=== PATIENT | female | born 1940 | race Caucasian/White ===

== ENCOUNTER 2017-04-29 13:59 | Emergency (ER) | payer MEDICARE ==
[~2017-04-29] VITALS: Ht 144.7 cm; Wt 63.5 kg
[~2017-04-29 13:59] MED LIST: LEVOTHYROXIN0.075 M1 PO; LORAZEPAM0.5 MG PO; PERCOCET 325 MG1 TA2 PO; PRAVASTATIN SOD40 MG PO
[2017-04-29 14:07] VITALS: BP 172/83
[2017-04-29 14:30] LABS: BILIRUBIN NEGATIVE (NEGATIVE); BLOOD TRACE-INTACT (NEGATIVE); CLARITY CLOUDY (CLEAR); COLOR YELLOW (YELLOW); GLUCOSE NEGATIVE (NEGATIVE); KETONE TRACE (NEGATIVE); LEUKO ESTERASE 2+ (NEGATIVE); NITRITE NEGATIVE (NEGATIVE); PH 5.5 (5.0-9.0); SPECIFIC GRAVITY >= 1.030 (1.005-1.030); UROBILINOGEN 0.2 E.U./dl (0.2-1.0)
[2017-04-29 14:40] LABS: BACTERIA 1+; EPITHELIAL CELLS 51-100; WBC 41-50 wbc/hpf (0-5)
[2017-04-29 14:49] LABS: BASO % 0.2 % (0.0-1.0); EOS # 0.2 10*3/uL (0.0-0.4); EOS % 2.4 % (1.0-4.0); HEMATOCRIT 37.8 % (37.0-47.0); HEMOGLOBIN 12.1 g/dl (12.0-16.0); LYMPH # 1.6 10*3/uL (1.3-4.4); LYMPH % 17.4 % (27.0-41.0); MEAN CELL VOLUME 94.7 fl (81.0-99.0); MEAN CORPUSCULAR HGB 30.3 pg (27.0-31.0); MEAN PLATELET VOLUME 9.1 fl (9.6-12.3); MONO # 0.6 10*3/uL (0.1-1.0); MONO % 6.8 % (3.0-9.0); NEUT # 6.6 10*3/uL (2.3-7.9); NEUT % 72.7 % (47.0-73.0); PLATELET COUNT AUTOMATED 197 10*3/uL (130-400); RED BLOOD COUNT 3.99 10*6/uL (4.10-5.10); RED CELL DISTRI WIDTH 13.4 % (0-14.5); WHITE BLOOD COUNT 9.1 10*3/uL (4.8-10.8)
[2017-04-29 15:04] LABS: CREATININE 1.07 mg/dL (0.55-1.02); THYROXINE (T4) TOTAL 13.9 ug/dl (4.8-13.9); TOTAL PROTEIN 7.8 gm/dL (6.4-8.2)
[2017-04-29 15:14] LABS: THYROID STIM HORMONE (HS) 2.67 uIU/ml (0.358-4.75)
[2017-04-29] MEDS ORDERED: MACROBID100 M1 PO (16:28)
== END 2017-04-29 22:03 | disposition home or self-care (01) ==
LOC: ED 13:59
PROVIDERS: Nurse Practitioner Family
DX: N30.00 Acute cystitis without hematuria (principal); Z79.899 Other long term (current) drug therapy

== ENCOUNTER → 2017-06-16 | Outpatient (CLI) | payer MEDICARE ==
[~2017-06-16] MED LIST changes: +MACROBID100 M1 PO
[2017-06-16 10:19] LABS: BASO % 0.4 % (0.0-1.0); EOS # 0.3 10*3/uL (0.0-0.4); EOS % 5.1 % (1.0-4.0); HEMATOCRIT 33.2 % (37.0-47.0); HEMOGLOBIN 10.7 g/dl (12.0-16.0); LYMPH % 18.3 % (27.0-41.0); MEAN CORPUSCULAR HGB 29.6 pg (27.0-31.0); MEAN CORPUSCULAR HGB CONC 32.2 g/dl (33.0-37.0); MEAN PLATELET VOLUME 9.1 fl (9.6-12.3); MONO # 0.4 10*3/uL (0.1-1.0); MONO % 6.3 % (3.0-9.0); NEUT % 69.4 % (47.0-73.0); PLATELET COUNT AUTOMATED 184 10*3/uL (130-400); RED BLOOD COUNT 3.61 10*6/uL (4.10-5.10); RED CELL DISTRI WIDTH 13.9 % (0-14.5); WHITE BLOOD COUNT 5.7 10*3/uL (4.8-10.8)
[2017-06-16 10:36] LABS: ALKALINE PHOSPHATASE 92 U/L (45-117); BUN 15 mg/dl (7-24); CHLORIDE 106 mmol/L (98-107); CREATININE 0.85 mg/dL (0.55-1.02); POTASSIUM 2.8 mmol/L (3.5-5.1); SGOT/AST 17 IU/L (3-35); SGPT/ALT 18 U/L (12-78); SODIUM 143 mmol/L (136-145); TOTAL PROTEIN 7.6 gm/dL (6.4-8.2)
== END | disposition home or self-care (01) ==
LOC: LAB 09:55
PROVIDERS: Internal Medicine
DX: R05 Cough (principal); R60.0 Localized edema; R82.99 Other abnormal findings in urine; Z87.891 Personal history of nicotine dependence

== ENCOUNTER → 2017-06-22 | Outpatient (CLI) | payer MEDICARE | LOC: CARD 09:55 | DX: M43.16 Spondylolisthesis, lumbar region (principal); M47.897 Other spondylosis, lumbosacral region; M48.54XA Collapsed vertebra, not elsewhere classified, thoracic region, initial encounter for fracture; M48.061 Spinal stenosis, lumbar region without neurogenic claudication; I35.1 Nonrheumatic aortic (valve) insufficiency; I72.8 Aneurysm of other specified arteries; R10.9 Unspecified abdominal pain; Z98.890 Other specified postprocedural states ==

== ENCOUNTER → 2017-06-27 | Outpatient (CLI) | payer MEDICARE | END | disposition home or self-care (01) | LOC: MRI 09:55 | DX: M48.54XA Collapsed vertebra, not elsewhere classified, thoracic region, initial encounter for fracture (principal) ==

== ENCOUNTER → 2017-06-28 | Outpatient (CLI) | payer MEDICARE | END | disposition home or self-care (01) | LOC: RAD 01:24 | DX: N95.9 Unspecified menopausal and perimenopausal disorder (principal) ==

== ENCOUNTER 2017-07-18 12:38 | Inpatient (IN) | payer MEDICARE ==
[~2017-07-18] VITALS: Ht 144.8 cm; Wt 70.3 kg
--- NOTE | ~2017-07-18 | PROC NOTE ---
[place], [place] PROCEDURE NOTE NAME: MARTINE PEREZ UNIT #: [id number] ROOM: 419 DOCTOR: FABIAN BUITRAGO BIRTHDATE: [birth year] DOS: 07/19/2017 MODIFIED BARIUM SWALLOW LOCATION: [facility], room 419, bed 1. DOCTOR: David Rothman DO RADIOLOGIST: Dr. Nuñez. BACKGROUND INFORMATION: The patient, a 77-year-old female was seen for modified barium swallow. This test was ordered to rule out aspiration due to reports of difficulty swallowing and decreased appetite. The patient was admitted with UTI and change in mental status. Further medical history includes CHF, chronic back pain, recent back surgery, metabolic encephalopathy, GERD. This patient is currently n.p.o. For today's assessment, she was alert and able to follow all commands. Oral peripheral examination revealed natural teeth which were in good condition. Lingual, labial, and buccal skills were all within normal limits in terms of strength, range of motion, and coordination. Laryngeal skills were also within normal limits as the patient was able to volitionally cough and swallow. METHODS AND MATERIALS USED FOR THE EXAM: The patient was positioned in the lateral plane and the exam was viewed under fluoroscopy. The patient was presented with a variety of consistencies to assess swallowing skills including applesauce mixed with barium presented in half teaspoon amounts, barium-coated cookie presented in bite sized piece and thin liquid barium taken both by cup and straw. The patient was given the cup and instructed to swallow in her normal sip size amount. ORAL PHASE: Unremarkable. PHARYNGEAL PHASE: Unremarkable. ESOPHAGEAL PHASE: This phase of the swallow was not formally assessed during this exam. IMPRESSIONS AND RECOMMENDATIONS: Based upon assessment results, this 77-year-old patient exhibited swallowing skills that were within normal limits. Recommend she receives a regular diet and thin liquids. No followup therapy is warranted at this time. Results and recommendations were shared with the patient, her daughter and her nurse and they verbalized understanding. Thank you very much for this referral. Should you have any questions regarding this patient, please contact the speech pathologist at [phone]. [place], [place] PROCEDURE NOTE NAME: MARTINE PEREZ UNIT #: [id number] ROOM: 419 DOCTOR: FABIAN BUITRAGO BIRTHDATE: [birth year] FABIAN BUITRAGO CM:PROCNOTE:PROCEDURE NOTE 112 FABIAN BUITRAGO
[~2017-07-18 12:38] MED LIST changes: -LEVOTHYROXIN0.075 M1 PO; +Synthroid,Lev100 MCG PO
[2017-07-18 12:46] VITALS: BP 146/72
[2017-07-18 13:29] LABS: BASO % 0.4 % (0.0-1.0); EOS # 0.4 10*3/uL (0.0-0.4); EOS % 3.6 % (1.0-4.0); HEMATOCRIT 28.4 % (37.0-47.0); HEMOGLOBIN 9.7 g/dl (12.0-16.0); LYMPH % 10.8 % (27.0-41.0); MEAN CELL VOLUME 87.7 fl (81.0-99.0); MEAN CORPUSCULAR HGB 29.9 pg (27.0-31.0); MEAN CORPUSCULAR HGB CONC 34.2 g/dl (33.0-37.0); MEAN PLATELET VOLUME 10.1 fl (9.6-12.3); MONO # 0.5 10*3/uL (0.1-1.0); MONO % 5.4 % (3.0-9.0); NEUT # 7.7 10*3/uL (2.3-7.9); NEUT % 79.4 % (47.0-73.0); PLATELET COUNT AUTOMATED 155 10*3/uL (130-400); RED BLOOD COUNT 3.24 10*6/uL (4.10-5.10); RED CELL DISTRI WIDTH 13.7 % (0-14.5); WHITE BLOOD COUNT 9.7 10*3/uL (4.8-10.8)
[2017-07-18 13:45] LABS: ALBUMIN 3.4 gm/dl (3.1-4.5); ALKALINE PHOSPHATASE 139 U/L (45-117); BUN 18 mg/dl (7-24); CHLORIDE 101 mmol/L (98-107); CREATININE 1.13 mg/dL (0.55-1.02); LIPASE 77 U/L (73-393); POTASSIUM 3.5 mmol/L (3.5-5.1); SGOT/AST 17 IU/L (3-35); SGPT/ALT 14 U/L (12-78); SODIUM 135 mmol/L (136-145); TOTAL PROTEIN 7.6 gm/dL (6.4-8.2)
[2017-07-18 13:46] LABS: ACT PARTIAL THROMBO TIME 26.2 SECONDS (20.8-31.5)
[2017-07-18 13:47] LABS: TROPONIN I < 0.015 ng/ml (<0.045)
[2017-07-18 15:03] LABS: BILIRUBIN NEGATIVE (NEGATIVE); BLOOD NEGATIVE (NEGATIVE); CLARITY CLOUDY (CLEAR); COLOR YELLOW (YELLOW); GLUCOSE NEGATIVE (NEGATIVE); KETONE NEGATIVE (NEGATIVE); LEUKO ESTERASE 1+ (NEGATIVE); NITRITE NEGATIVE (NEGATIVE); UROBILINOGEN 0.2 E.U./dl (0.2-1.0)
[2017-07-18 15:09] LABS: RBC 0-2 rbc/hpf (0-2)
[2017-07-18 15:10] LABS: BACTERIA 4+; EPITHELIAL CELLS TNTC; URIC ACID CRYSTALS TRACE
--- NOTE | 2017-07-18 16:47 | NUR ---
MEDICATED WITH ULTRAM ORDERED FOR C/O BACK PAIN. SHE HAS BEEN TAKING THEM AT HOME SINCE RECENT BACK SURGERY. SAHIL BOB RN
[2017-07-18 17:29] VITALS: BP 147/75
--- NOTE | 2017-07-18 17:30 | NUR ---
A 77, admitted to , under the services of ROSS Turner DO with a diagnosis of UTI. Chief complaint is CONFUSED PER FAMILY. Patient arrived via ambulatory from ER. Monitor applied. Initial assessment completed. Vital signs taken and recorded. ROSS TURNER DO notified of admission to the unit. Orders received. See assessment for past medical history, medications and allergies. Patient and/or family oriented to unit. [facility]. Clothing/patient valuable form completed. JOHN TODD
[2017-07-18] MEDS ORDERED: ZANTAC 300300 MG PO (17:41)
[2017-07-18] MEDS ORDERED: ZOLOFT25 MG PO (17:41)
[2017-07-18] MEDS ORDERED: OMEPRAZOLE40 MG PO (17:43)
[2017-07-18] MEDS ORDERED: FUROSEMIDE40 MG PO (17:43)
[2017-07-18] MEDS ORDERED: CYCLOBENZAPRINE5 M3 PO (17:44)
[2017-07-18] MEDS ORDERED: ULTRAM50 MG PO (17:44)
[2017-07-18] MEDS ORDERED: K-LOR 20MEQ20 ME1 PO (17:45)
[2017-07-18] MEDS ORDERED: MELATONIN2.5 M1 PO (17:46)
[2017-07-18] MEDS ORDERED: CALCIUM + D3 E1 EACH PO (17:46)
[2017-07-18 20:00] VITALS: BP 128/68
--- NOTE | 2017-07-18 20:56 | NUR ---
DR HORVATH NOTIFIED THAT PT HOME MEDICATIONS NOT ORDER ON ADMISSION. STATES REVIEWING THEM AT THIS TIME.
--- NOTE | 2017-07-18 20:56 | NUR ---
PT FAMILY NOW LEAVING PT REMAINS A&A, AND PLEASANTLY CONFUSED. BED ALARM SET. PT WAS ASSISTED WITH MAX ASSIST TO BR PRIOR TO THE FAMILY LEAVING. TOLERATED WELL. PT REMINDED TO USE CALL LIGHTS AND ALL WELL IN REACH. PT COOPERATIVE AT PRESENT WITH ALL CARE
--- NOTE | 2017-07-18 22:45 | NUR ---
PT HOME MEDICATIONS REORDERED. MEDICATED ORDERED WITH ULTRAM FOR BACK PAIN. UPON FURTHER ASSESSMENT PT RESTING COMFORTABLY IN BED. BED ALARM IN TACT. PT SLEEPING QUIETLY. MEDICATION DEEMED EFFECTIVE
[2017-07-19] VITALS: BP 136/67
[2017-07-19 07:22] LABS: BASO % 0.2 % (0.0-1.0); EOS # 0.3 10*3/uL (0.0-0.4); HEMOGLOBIN 8.8 g/dl (12.0-16.0); LYMPH % 18.3 % (27.0-41.0); MEAN CELL VOLUME 87.5 fl (81.0-99.0); MEAN CORPUSCULAR HGB 29.6 pg (27.0-31.0); MEAN CORPUSCULAR HGB CONC 33.8 g/dl (33.0-37.0); MEAN PLATELET VOLUME 9.5 fl (9.6-12.3); MONO # 0.4 10*3/uL (0.1-1.0); MONO % 6.9 % (3.0-9.0); NEUT # 3.9 10*3/uL (2.3-7.9); NEUT % 68.7 % (47.0-73.0); PLATELET COUNT AUTOMATED 139 10*3/uL (130-400); RED BLOOD COUNT 2.97 10*6/uL (4.10-5.10); RED CELL DISTRI WIDTH 13.8 % (0-14.5); WHITE BLOOD COUNT 5.6 10*3/uL (4.8-10.8)
[2017-07-19 08:00] VITALS: BP 111/82
[2017-07-19 08:10] LABS: ALBUMIN 2.8 gm/dl (3.1-4.5); BUN 15 mg/dl (7-24); CHLORIDE 103 mmol/L (98-107); POTASSIUM 3.3 mmol/L (3.5-5.1); SODIUM 137 mmol/L (136-145)
[2017-07-19 08:17] LABS: ALKALINE PHOSPHATASE 112 U/L (45-117); CHOLESTEROL 159 mg/dL (<200); CREATININE 0.92 mg/dL (0.55-1.02); FREE T4 0.99 ng/dl (0.76-1.46); HDL CHOLESTEROL 29 mg/dl (40-60); LDL CHOLESTEROL 94 mg/dL (9-159); PHOSPHOROUS 2.5 mg/dL (2.5-4.9); SGOT/AST 14 IU/L (3-35); SGPT/ALT 12 U/L (12-78); TOTAL PROTEIN 6.5 gm/dL (6.4-8.2); TRIGLYCERIDES 182 mg/dl (<150); VLDL CHOLESTEROL 36 mg/dL (6-40)
[2017-07-19 09:57] LABS: VITAMIN D, 25-HYDROXY 13.2 ng/mL (30-100)
--- NOTE | 2017-07-19 10:44 | NUR ---
Cafeteria Assistant in to talk to patient. Patient states lives at home with alone. There are few steps in the home. Physician: susana mcdermott Pharmacy: Home health services: none Patient's level of ADLs: MINIMAL ASSIST Patient has working utilities: all working DME: walker Follow-up physician's appointment after d/c: will be made by hospitalist nurse director upon discharge Does patient want to access PORTAL?: no Discharge plan discussed with patient, daughter present, daughter stated patient lives at home alone, but daughter lives next door, granddaughter has been staying with patient since her back surgery last tuesday, patient has a walker to use, patient somewhat confused, discussed a discharge plan including a short term nursing home prior to going back home, daughter refused, stated her mom would be going back home and someone would be with her 24 hours a day, also discussed with them VNA and they were receptive to this, given choice of companies, they chose [facility], site planner will send referral to [facility] for when patient is medically stable for discharge. MELISSA WERNER
--- NOTE | 2017-07-19 10:57 | NUR ---
SPEECH PATHOLOGY MBS completed as per orders. Patient was challenged with puree, solid food and thin liquids which were taken by cup and straw. Oral and pharyngeal swallowing skills were WNL. Recommend regular diet and thin liquids. No follow up therapy is warranted at this time. Results and prerna. were shared with patient, her daughter and nurse and they verbalized understanding. Dictated report to follow. Thank you for this referral. FABIAN BUITRAGO MSCCC-FLAKER TENDER
[2017-07-19 12:00] VITALS: BP 99/64
[2017-07-19 16:00] VITALS: BP 131/69
--- NOTE | 2017-07-19 16:15 | NUR ---
PRN PAIN MED GIVEN FOR 8/10 BACK PAIN.
--- NOTE | 2017-07-19 16:21 | NUR ---
PRN PAIN MED GIVEN FOR PT REPORT 8/10 BACK PAIN.
--- NOTE | 2017-07-19 17:15 | NUR ---
PRN PAIN MED EFFECTIVE, PT REPORTS HER PAIN IS NOW 4/10 TO HER BACK.
[2017-07-19 20:00] VITALS: BP 111/64
--- NOTE | 2017-07-19 21:08 | NUR ---
PT. AWAKE, ALERT AND ORIENTED X 2 AT THIS TIME, DISORIENTED TO TIME. PT. HAS PERIODS OF CONFUSION. PT. DENIES CP, SOB AND PAIN AT THIS TIME. CALL LIGHT WITHIN REACH, BED IN LOWEST POSITION, WHEELS LOCKED. SEE SHIFT ASSESSMENT.
[2017-07-20] VITALS: BP 117/62
[2017-07-20 04:01] VITALS: BP 114/60
[2017-07-20 06:48] LABS: BASO % 0.4 % (0.0-1.0); EOS # 0.3 10*3/uL (0.0-0.4); EOS % 5.3 % (1.0-4.0); HEMATOCRIT 24.9 % (37.0-47.0); HEMOGLOBIN 8.3 g/dl (12.0-16.0); LYMPH % 19.2 % (27.0-41.0); MEAN CELL VOLUME 88.6 fl (81.0-99.0); MEAN CORPUSCULAR HGB 29.5 pg (27.0-31.0); MEAN CORPUSCULAR HGB CONC 33.3 g/dl (33.0-37.0); MEAN PLATELET VOLUME 9.7 fl (9.6-12.3); MONO # 0.4 10*3/uL (0.1-1.0); MONO % 6.8 % (3.0-9.0); NEUT # 3.5 10*3/uL (2.3-7.9); NEUT % 67.3 % (47.0-73.0); PLATELET COUNT AUTOMATED 142 10*3/uL (130-400); RED BLOOD COUNT 2.81 10*6/uL (4.10-5.10); RED CELL DISTRI WIDTH 13.5 % (0-14.5); WHITE BLOOD COUNT 5.3 10*3/uL (4.8-10.8)
[2017-07-20 07:08] LABS: BUN 16 mg/dl (7-24); CHLORIDE 105 mmol/L (98-107); CREATININE 0.98 mg/dL (0.55-1.02); POTASSIUM 3.2 mmol/L (3.5-5.1); SODIUM 141 mmol/L (136-145)
[2017-07-20 08:00] VITALS: BP 96/69
--- NOTE | 2017-07-20 09:26 | NUR ---
case management visits with patient, patient will be going home when able and OV will see her, case management will follow
[2017-07-20 12:00] VITALS: BP 123/85
[2017-07-20 12:24] LABS: TOTAL IRON BINDING CAPACITY 287 ug/dl (250-450)
[2017-07-20 12:27] LABS: IRON 31 ug/dL (50-170)
--- NOTE | 2017-07-20 14:20 | NUR ---
Patient discharged to home with home health via [facility]. Received order, faxed referral.
--- NOTE | 2017-07-20 14:29 | NUR ---
Discharge instructions reviewed with patient/family. Patient receptive and verbalizes understanding. Follow-up care arranged. Written instructions given to patient/family. ALEX PRESCOTT
== END 2017-07-20 14:29 | disposition home health service (06) | DRG 871 ==
LOC: ED 12:38 → EDHOLD 15:55 → 4E 15:55
PROVIDERS: Emergency Medicine; Internal Medicine; ADMIT Internal Medicine
PROC: BD11YZZ Fluoroscopy of Esophagus using Other Contrast (ICD-10-PCS; principal; 2017-07-19)
PROC: BD1BYZZ Fluoroscopy of Mouth/Oropharynx using Other Contrast (ICD-10-PCS; principal; 2017-07-19)
DX: A41.9 Sepsis, unspecified organism (principal); G93.41 Metabolic encephalopathy; N17.0 Acute kidney failure with tubular necrosis; I50.32 Chronic diastolic (congestive) heart failure; N39.0 Urinary tract infection, site not specified; R13.10 Dysphagia, unspecified; D72.810 Lymphocytopenia; D64.9 Anemia, unspecified; R73.9 Hyperglycemia, unspecified; R74.8 Abnormal levels of other serum enzymes; G89.29 Other chronic pain; M54.9 Dorsalgia, unspecified; R03.0 Elevated blood-pressure reading, without diagnosis of hypertension; M81.0 Age-related osteoporosis without current pathological fracture; E03.9 Hypothyroidism, unspecified; E78.5 Hyperlipidemia, unspecified; E55.9 Vitamin D deficiency, unspecified; E53.8 Deficiency of other specified B group vitamins; Z82.49 Family history of ischemic heart disease and other diseases of the circulatory system; Z83.6 Family history of other diseases of the respiratory system; Z72.89 Other problems related to lifestyle; Z81.1 Family history of alcohol abuse and dependence; Z79.899 Other long term (current) drug therapy

== ENCOUNTER → 2017-11-08 | Outpatient (CLI) | payer MEDICARE ==
[~2017-11-08] MED LIST changes: +CALCIUM + D3 E1 EACH PO; +CYCLOBENZAPRINE5 M3 PO; +FUROSEMIDE40 MG PO; +K-LOR 20MEQ20 ME1 PO; +MELATONIN2.5 M1 PO; +OMEPRAZOLE40 MG PO; +ULTRAM50 MG PO; +ZANTAC 300300 MG PO; +ZOLOFT25 MG PO
[2017-11-08 14:03] LABS: BASO # 0.1 10*3/uL (0.0-0.1); BASO % 0.8 % (0.0-1.0); EOS # 0.2 10*3/uL (0.0-0.4); EOS % 3.6 % (1.0-4.0); HEMATOCRIT 33.7 % (37.0-47.0); HEMOGLOBIN 10.7 g/dl (12.0-16.0); LYMPH # 1.5 10*3/uL (1.3-4.4); LYMPH % 24.3 % (27.0-41.0); MEAN CELL VOLUME 90.8 fl (81.0-99.0); MEAN CORPUSCULAR HGB 28.8 pg (27.0-31.0); MEAN CORPUSCULAR HGB CONC 31.8 g/dl (33.0-37.0); MONO # 0.5 10*3/uL (0.1-1.0); MONO % 7.5 % (3.0-9.0); NEUT # 3.9 10*3/uL (2.3-7.9); NEUT % 63.3 % (47.0-73.0); PLATELET COUNT AUTOMATED 205 10*3/uL (130-400); RED BLOOD COUNT 3.71 10*6/uL (4.10-5.10); WHITE BLOOD COUNT 6.1 10*3/uL (4.8-10.8)
[2017-11-08 14:19] LABS: ALBUMIN 3.9 gm/dl (3.1-4.5); CREATININE 1.21 mg/dL (0.55-1.02); POTASSIUM 4.2 mmol/L (3.5-5.1); TOTAL PROTEIN 7.6 gm/dL (6.4-8.2)
[2017-11-08 14:35] LABS: THYROID STIM HORMONE (HS) 1.08 uIU/ml (0.358-4.75)
== END | disposition home or self-care (01) ==
LOC: LAB 13:14
PROVIDERS: Internal Medicine
DX: E03.9 Hypothyroidism, unspecified (principal); E78.2 Mixed hyperlipidemia; E66.09 Other obesity due to excess calories

== ENCOUNTER 2018-10-19 14:25 | Emergency (ER) | payer MEDICARE ==
[~2018-10-19] VITALS: Ht 144.7 cm; Wt 70.3 kg
[2018-10-19 14:27] VITALS: BP 154/85
== END 2018-10-19 16:52 | disposition home or self-care (01) ==
LOC: ED 14:25
DX: M77.32 Calcaneal spur, left foot (principal); Z79.899 Other long term (current) drug therapy; Z98.890 Other specified postprocedural states

== ENCOUNTER → 2018-11-02 | Outpatient (CLI) | payer MEDICARE ==
[2018-11-02 11:58] LABS: HEMATOCRIT 35.4 % (37.0-47.0); HEMOGLOBIN 11.1 g/dl (12.0-16.0); MEAN CELL VOLUME 93.2 fl (81.0-99.0); MEAN CORPUSCULAR HGB 29.2 pg (27.0-31.0); MEAN CORPUSCULAR HGB CONC 31.4 g/dl (33.0-37.0); MEAN PLATELET VOLUME 9.7 fl (9.6-12.3); PLATELET COUNT AUTOMATED 187 10*3/uL (130-400); RED CELL DISTRI WIDTH 13.8 % (0-14.5); WHITE BLOOD COUNT 9.4 10*3/uL (4.8-10.8)
[2018-11-02 12:22] LABS: PLATELET SUFFICIENCY NORMAL (NORMAL); TOTAL CELLS COUNTED 100 #CELLS
[2018-11-02 12:35] LABS: ALBUMIN 3.7 gm/dl (3.1-4.5); ALKALINE PHOSPHATASE 57 U/L (45-117); BUN 16 mg/dl (7-24); CHLORIDE 109 mmol/L (98-107); CHOLESTEROL 138 mg/dL (<200); CREATININE 1.02 mg/dL (0.55-1.02); HDL CHOLESTEROL 35 mg/dl (40-60); LDL CHOLESTEROL 70 mg/dL (9-159); POTASSIUM 3.7 mmol/L (3.5-5.1); SGOT/AST 9 IU/L (3-35); SGPT/ALT 14 U/L (12-78); SODIUM 142 mmol/L (136-145); TOTAL PROTEIN 7.3 gm/dL (6.4-8.2); TRIGLYCERIDES 164 mg/dl (<150); VLDL CHOLESTEROL 33 mg/dL (6-40)
== END | disposition home or self-care (01) ==
LOC: LAB 11:32
PROVIDERS: Family Medicine
DX: G30.1 Alzheimer's disease with late onset (principal); E03.9 Hypothyroidism, unspecified; E78.2 Mixed hyperlipidemia; E11.9 Type 2 diabetes mellitus without complications; D64.9 Anemia, unspecified

== ENCOUNTER 2024-04-07 16:21 | Inpatient (IN) | payer MEDICARE ==
[~2024-04-07] VITALS: Ht 142.2 cm; Wt 65.3 kg
[2024-04-07 16:39] VITALS: BP 115/68
[2024-04-07] MEDS ORDERED: SODIUM CHLORIDE 0.9% 1,000 ML IV ONE ×2 (16:50)
[2024-04-07] MEDS ORDERED: ACETAMINOPHEN 325 MG TAB PO ONE (16:55)
[2024-04-07 17:10] LABS: BASO % 0.3 % (0.0-1.0); EOS # 0.1 10*3/uL (0.0-0.4); EOS % 1.3 % (1.0-4.0); HEMATOCRIT 33.2 % (37.0-47.0); LYMPH # 1.2 10*3/uL (1.3-4.4); LYMPH % 12.5 % (27.0-41.0); MEAN CELL VOLUME 93.3 fl (81.0-99.0); MEAN CORPUSCULAR HGB 29.2 pg (27.0-31.0); MEAN CORPUSCULAR HGB CONC 31.3 g/dl (33.0-37.0); MEAN PLATELET VOLUME 8.9 fl (9.6-12.3); MONO # 0.8 10*3/uL (0.1-1.0); MONO % 8.5 % (3.0-9.0); NEUT # 7.1 10*3/uL (2.3-7.9); NEUT % 76.7 % (47.0-73.0); PLATELET COUNT AUTOMATED 255 10*3/uL (130-400); RED BLOOD COUNT 3.56 10*6/uL (4.10-5.10); RED CELL DISTRI WIDTH 13.2 % (0-14.5); WHITE BLOOD COUNT 9.2 10*3/uL (4.8-10.8)
[2024-04-07 17:26] LABS: POTASSIUM 4.1 mmol/L (3.4-5.1)
[2024-04-07] MEDS ORDERED: LEVOTHYROXINE50 MCG PO (19:07)
[2024-04-07] MEDS ORDERED: ARICEPT10 M1 PO (19:08)
[2024-04-07] MEDS ORDERED: RISPERDAL CONST50 MG IM (19:10)
[2024-04-07] MEDS ORDERED: METHYL B-12 AN1 EACH PO (19:10)
[2024-04-07] MEDS ORDERED: CRANBERRY PLUS1 EAC1 PO (19:11)
[2024-04-07] MEDS ORDERED: MEMANTINE HCL10 MG PO (19:13)
[2024-04-07 19:20] LABS: BILIRUBIN Negative (Negative); BLOOD Negative (Negative); CLARITY Clear (Clear); COLOR Yellow (Yellow); GLUCOSE Negative (Negative); KETONE Trace (Negative); LEUKO ESTERASE 1+ (Negative); NITRITE Negative (Negative); PH 5.5 (4.5-8.0)
[2024-04-07 19:33] LABS: MUCOUS 1+; WBC 16-20 wbc/hpf (0-5)
[2024-04-07] MEDS ORDERED: Ondansetron Hydrochloride 4 MG/2 ML VIAL IV PRN (19:50)
[2024-04-07] MEDS ORDERED: BISACODYL 5 MG TAB PO PRN (19:50)
[2024-04-07] MEDS ORDERED: ACETAMINOPHEN 325 MG TAB PO PRN (19:50)
[2024-04-07] MEDS ORDERED: Magnesium Hydroxide 30 ML UDC PO PRN (19:50)
[2024-04-07] MEDS ORDERED: BISACODYL 10 MG SUPP R PRN (19:50)
[2024-04-07] MEDS ORDERED: ACETAMINOPHEN 650 MG SUPP R PRN (19:50)
[2024-04-07] MEDS ORDERED: TEMAZEPAM 15 MG CAP PO PRN (19:50)
[2024-04-07] MEDS ORDERED: REMDESIVIR 200 MG in SODIUM CHLORIDE 0.9% 210 ML IV ONE ×2 (20:00→22:00)
[2024-04-07] MEDS ORDERED: MAGNESIUM SULFATE 50 ML IV ONE (20:10)
[2024-04-07 20:59] VITALS: BP 96/67
[2024-04-08 00:13] VITALS: BP 110/54
[2024-04-08 04:19] VITALS: BP 125/66
[2024-04-08 07:12] LABS: BASO % 0.5 % (0.0-1.0); EOS % 0.6 % (1.0-4.0); HEMATOCRIT 29.2 % (37.0-47.0); LYMPH # 1.5 10*3/uL (1.3-4.4); LYMPH % 22.1 % (27.0-41.0); MEAN CELL VOLUME 94.5 fl (81.0-99.0); MEAN CORPUSCULAR HGB 29.8 pg (27.0-31.0); MEAN CORPUSCULAR HGB CONC 31.5 g/dl (33.0-37.0); MEAN PLATELET VOLUME 9.2 fl (9.6-12.3); MONO # 0.8 10*3/uL (0.1-1.0); MONO % 11.7 % (3.0-9.0); NEUT # 4.2 10*3/uL (2.3-7.9); NEUT % 64.3 % (47.0-73.0); PLATELET COUNT AUTOMATED 207 10*3/uL (130-400); RED BLOOD COUNT 3.09 10*6/uL (4.10-5.10); RED CELL DISTRI WIDTH 13.4 % (0-14.5); WHITE BLOOD COUNT 6.6 10*3/uL (4.8-10.8)
[2024-04-08 07:14] VITALS: BP 112/51
[2024-04-08 08:42] LABS: POTASSIUM 3.7 mmol/L (3.4-5.1); TOTAL PROTEIN 6.1 gm/dL (6.0-8.0)
[2024-04-08 08:49] LABS: VITAMIN D, 25-HYDROXY 28.4 ng/mL (30-100)
[2024-04-08] MEDS ORDERED: Enoxaparin Sodium 30 MG/0.3 ML SYR SC SCH (10:00)
[2024-04-08 11:30] VITALS: BP 113/50
[2024-04-08] MEDS ORDERED: RISPERDAL0.5 MG PO (12:26)
[2024-04-08] MEDS ORDERED: NAMENDA-5 PO (12:27)
[2024-04-08] MEDS ORDERED: DONEPEZIL 10 MG TAB PO SCH (13:28)
[2024-04-08] MEDS ORDERED: Memantine Hydrochloride 5 MG TAB PO SCH (13:30)
[2024-04-08] MEDS ORDERED: Levothyroxine Sodium 50 MCG TAB PO SCH (13:30)
[2024-04-08] MEDS ORDERED: RISPERIDONE 0.5 MG TAB PO SCH (13:30)
[2024-04-08 16:00] VITALS: BP 93/49
[2024-04-08 20:00] VITALS: BP 101/51
[2024-04-08] MEDS ORDERED: REMDESIVIR 100 MG in SODIUM CHLORIDE 0.9% 230 ML IV SCH (22:00)
[2024-04-09 05:53] LABS: POTASSIUM 3.7 mmol/L (3.4-5.1)
[2024-04-09 06:05] LABS: BASO % 0.3 % (0.0-1.0); EOS % 0.7 % (1.0-4.0); HEMATOCRIT 29.5 % (37.0-47.0); LYMPH # 1.6 10*3/uL (1.3-4.4); LYMPH % 26.6 % (27.0-41.0); MEAN CELL VOLUME 95.8 fl (81.0-99.0); MEAN CORPUSCULAR HGB 29.9 pg (27.0-31.0); MEAN CORPUSCULAR HGB CONC 31.2 g/dl (33.0-37.0); MEAN PLATELET VOLUME 9.8 fl (9.6-12.3); MONO # 0.6 10*3/uL (0.1-1.0); MONO % 9.6 % (3.0-9.0); NEUT # 3.8 10*3/uL (2.3-7.9); NEUT % 62.1 % (47.0-73.0); PLATELET COUNT AUTOMATED 180 10*3/uL (130-400); RED BLOOD COUNT 3.08 10*6/uL (4.10-5.10); RED CELL DISTRI WIDTH 13.5 % (0-14.5); WHITE BLOOD COUNT 6.1 10*3/uL (4.8-10.8)
[2024-04-09 08:00] VITALS: BP 95/55
[2024-04-09 12:00] VITALS: BP 97/72
[2024-04-09 16:00] VITALS: BP 89/38
[2024-04-09 20:00] VITALS: BP 92/54
[2024-04-10] VITALS: BP 90/62
[2024-04-10 05:16] LABS: BUN 16 mg/dl (9-23); CHLORIDE 110 mmol/L (98-107); POTASSIUM 3.6 mmol/L (3.4-5.1)
[2024-04-10 06:18] LABS: BASO % 0.3 % (0.0-1.0); EOS % 0.5 % (1.0-4.0); HEMATOCRIT 28.1 % (37.0-47.0); LYMPH # 1.8 10*3/uL (1.3-4.4); LYMPH % 24.4 % (27.0-41.0); MEAN CORPUSCULAR HGB 30.1 pg (27.0-31.0); MEAN PLATELET VOLUME 9.9 fl (9.6-12.3); MONO # 0.5 10*3/uL (0.1-1.0); MONO % 6.8 % (3.0-9.0); NEUT # 5.1 10*3/uL (2.3-7.9); NEUT % 67.6 % (47.0-73.0); PLATELET COUNT AUTOMATED 191 10*3/uL (130-400); RED BLOOD COUNT 2.99 10*6/uL (4.10-5.10); RED CELL DISTRI WIDTH 13.5 % (0-14.5); WHITE BLOOD COUNT 7.5 10*3/uL (4.8-10.8)
[2024-04-10 08:00] VITALS: BP 106/53
== END 2024-04-10 12:08 | disposition home or self-care (01) | DRG 871 ==
LOC: ED 16:21 → EDHOLD 18:19 → ICCU 18:19 → EDHOLD 20:52 → ICCU 04-08 10:32
PROVIDERS: Emergency Medicine; Student in an Organized Health Care Education/Training Program; ADMIT Internal Medicine; ATTEND Internal Medicine
PROC: XW033E5 Introduction of Remdesivir Anti-infective into Peripheral Vein, Percutaneous Approach, New Technology Group 5 (ICD-10-PCS; principal; 2024-04-07)
DX: A41.89 Other specified sepsis (principal); G93.41 Metabolic encephalopathy; J12.82 Pneumonia due to coronavirus disease 2019; U07.1 COVID-19; N17.0 Acute kidney failure with tubular necrosis; N39.0 Urinary tract infection, site not specified; E87.20 Acidosis, unspecified; R65.20 Severe sepsis without septic shock; Z66 Do not resuscitate; E03.9 Hypothyroidism, unspecified; M81.0 Age-related osteoporosis without current pathological fracture; G30.9 Alzheimer's disease, unspecified; R73.9 Hyperglycemia, unspecified; D50.9 Iron deficiency anemia, unspecified; E78.2 Mixed hyperlipidemia; Z51.5 Encounter for palliative care; E53.8 Deficiency of other specified B group vitamins; E83.42 Hypomagnesemia; F02.A0 Dementia in other diseases classified elsewhere, mild, without behavioral disturbance, psychotic disturbance, mood disturbance, and anxiety; N18.31 Chronic kidney disease, stage 3a; R13.10 Dysphagia, unspecified; Z79.899 Other long term (current) drug therapy; Z79.01 Long term (current) use of anticoagulants; Z79.2 Long term (current) use of antibiotics; Z81.1 Family history of alcohol abuse and dependence; Z82.49 Family history of ischemic heart disease and other diseases of the circulatory system; Z82.5 Family history of asthma and other chronic lower respiratory diseases

== ENCOUNTER → 2024-04-18 | Outpatient (CLI) | payer MEDICARE ==
[~2024-04-18] MED LIST changes: +ARICEPT10 M1 PO; +CRANBERRY PLUS1 EAC1 PO; +LEVOTHYROXINE50 MCG PO; +MEMANTINE HCL10 MG PO; +METHYL B-12 AN1 EACH PO; +NAMENDA-5 PO; +RISPERDAL CONST50 MG IM; +RISPERDAL0.5 MG PO
[2024-04-18 18:12] LABS: BILIRUBIN Negative (Negative); BLOOD Negative (Negative); CLARITY Cloudy (Clear); COLOR Yellow (Yellow); GLUCOSE Negative (Negative); KETONE Trace (Negative); LEUKO ESTERASE 2+ (Negative); NITRITE Negative (Negative); PH 5.5 (4.5-8.0)
[2024-04-18 18:43] LABS: BACTERIA 2+; WBC 51-100 wbc/hpf (0-5)
== END | disposition home or self-care (01) ==
LOC: LAB 11:20
PROVIDERS: ATTEND Nurse Practitioner Family
DX: R30.0 Dysuria (principal); R41.0 Disorientation, unspecified

== ENCOUNTER → 2024-05-01 | Outpatient (CLI) | payer MEDICARE ==
[2024-05-01 13:36] LABS: BASO % 0.4 % (0.0-1.0); EOS # 0.2 10*3/uL (0.0-0.4); EOS % 1.8 % (1.0-4.0); HEMATOCRIT 31.7 % (37.0-47.0); LYMPH # 1.6 10*3/uL (1.3-4.4); LYMPH % 15.9 % (27.0-41.0); MEAN CELL VOLUME 95.2 fl (81.0-99.0); MEAN CORPUSCULAR HGB 29.1 pg (27.0-31.0); MEAN CORPUSCULAR HGB CONC 30.6 g/dl (33.0-37.0); MEAN PLATELET VOLUME 9.1 fl (9.6-12.3); MONO # 0.7 10*3/uL (0.1-1.0); MONO % 7.2 % (3.0-9.0); NEUT # 7.4 10*3/uL (2.3-7.9); NEUT % 73.9 % (47.0-73.0); PLATELET COUNT AUTOMATED 309 10*3/uL (130-400); RED BLOOD COUNT 3.33 10*6/uL (4.10-5.10); WHITE BLOOD COUNT 10.1 10*3/uL (4.8-10.8)
[2024-05-01 14:07] LABS: POTASSIUM 3.5 mmol/L (3.4-5.1); TOTAL PROTEIN 7.7 gm/dL (6.0-8.0)
[2024-05-01 14:23] LABS: FREE T4 0.74 ng/dl (0.89-1.76)
== END | disposition home or self-care (01) ==
LOC: LAB 13:20
PROVIDERS: ATTEND Nurse Practitioner Family
DX: N18.32 Chronic kidney disease, stage 3b (principal); R41.0 Disorientation, unspecified; R30.0 Dysuria; E03.9 Hypothyroidism, unspecified; E78.5 Hyperlipidemia, unspecified

== ENCOUNTER 2024-06-20 15:11 | Inpatient (IN) | payer MEDICARE ==
[~2024-06-20] VITALS: Ht 152.4 cm; Wt 65.8 kg
[2024-06-20 15:17] VITALS: BP 126/79
[2024-06-20] MEDS ORDERED: SODIUM CHLORIDE 0.9% 1,000 ML IV ONE ×3 (15:30→18:20)
[2024-06-20 16:24] LABS: POTASSIUM 3.2 mmol/L (3.4-5.1)
[2024-06-20 16:48] LABS: BASO % 0.2 % (0.0-1.0); EOS # 0.2 10*3/uL (0.0-0.4); EOS % 1.1 % (1.0-4.0); HEMATOCRIT 27.6 % (37.0-47.0); MEAN CORPUSCULAR HGB 28.7 pg (27.0-31.0); MEAN CORPUSCULAR HGB CONC 31.2 g/dl (33.0-37.0); MEAN PLATELET VOLUME 9.6 fl (9.6-12.3); MONO # 0.8 10*3/uL (0.1-1.0); MONO % 6.2 % (3.0-9.0); NEUT # 10.8 10*3/uL (2.3-7.9); NEUT % 82.1 % (47.0-73.0); PLATELET COUNT AUTOMATED 275 10*3/uL (130-400); RED CELL DISTRI WIDTH 13.8 % (0-14.5); WHITE BLOOD COUNT 13.2 10*3/uL (4.8-10.8)
[2024-06-20 17:10] LABS: BILIRUBIN Negative (Negative); BLOOD Negative (Negative); CLARITY Cloudy (Clear); COLOR Yellow (Yellow); GLUCOSE Negative (Negative); KETONE Negative (Negative); LEUKO ESTERASE 1+ (Negative); NITRITE Negative (Negative); PH 5.5 (4.5-8.0)
[2024-06-20 17:23] LABS: BACTERIA 1+; FINE GRANULAR CAST 0-2; MUCOUS 2+; RBC 0-2 rbc/hpf (0-2)
[2024-06-20] MEDS ORDERED: Ceftriaxone Sodium 1 GM/10 ML SYR IV ONE (17:25)
[2024-06-20] MEDS ORDERED: BISACODYL 10 MG SUPP R PRN (17:50)
[2024-06-20] MEDS ORDERED: Magnesium Hydroxide 30 ML UDC PO PRN (17:50)
[2024-06-20] MEDS ORDERED: ACETAMINOPHEN 650 MG SUPP R PRN (17:50)
[2024-06-20] MEDS ORDERED: ACETAMINOPHEN 325 MG TAB PO PRN (17:50)
[2024-06-20] MEDS ORDERED: MORPHINE Sulfate 2 MG/ML SYR IV PRN (17:50)
[2024-06-20] MEDS ORDERED: Ondansetron Hydrochloride 4 MG/2 ML VIAL IV PRN (17:50)
[2024-06-20] MEDS ORDERED: Acetaminophen/Hydrocodone 5 MG/325 MG TABLET PO PRN (17:50)
[2024-06-20] MEDS ORDERED: BISACODYL 5 MG TAB PO PRN (17:50)
[2024-06-20 18:39] VITALS: BP 177/52
[2024-06-20] MEDS ORDERED: POTASSIUM CHLORIDE 20 MEQ TAB PO ONE (19:15)
[2024-06-20] MEDS ORDERED: MAGNESIUM SULFATE 50 ML IV ONE (19:15)
[2024-06-20 19:26] VITALS: BP 150/90
[2024-06-20 23:15] VITALS: BP 109/75
[2024-06-21 02:57] VITALS: BP 106/78
[2024-06-21] MEDS ORDERED: Levothyroxine Sodium 50 MCG TAB PO SCH ×2 (06:00→10:00)
[2024-06-21 06:16] LABS: BASO % 0.3 % (0.0-1.0); EOS # 0.1 10*3/uL (0.0-0.4); EOS % 0.6 % (1.0-4.0); HEMATOCRIT 24.2 % (37.0-47.0); MEAN CELL VOLUME 90.3 fl (81.0-99.0); MEAN CORPUSCULAR HGB 29.9 pg (27.0-31.0); MEAN CORPUSCULAR HGB CONC 33.1 g/dl (33.0-37.0); MEAN PLATELET VOLUME 9.8 fl (9.6-12.3); MONO # 0.7 10*3/uL (0.1-1.0); MONO % 6.2 % (3.0-9.0); NEUT # 9.2 10*3/uL (2.3-7.9); NEUT % 80.2 % (47.0-73.0); PLATELET COUNT AUTOMATED 241 10*3/uL (130-400); RED BLOOD COUNT 2.68 10*6/uL (4.10-5.10); RED CELL DISTRI WIDTH 13.9 % (0-14.5); WHITE BLOOD COUNT 11.4 10*3/uL (4.8-10.8)
[2024-06-21 06:32] LABS: BUN 11 mg/dl (9-23); CHLORIDE 109 mmol/L (98-107); POTASSIUM 2.5 mmol/L (3.4-5.1)
[2024-06-21 08:00] VITALS: BP 92/44
[2024-06-21] MEDS ORDERED: Enoxaparin Sodium 30 MG/0.3 ML SYR SC SCH (10:00)
[2024-06-21] MEDS ORDERED: B6 PO SCH (10:00)
[2024-06-21] MEDS ORDERED: [UNRECOGNIZED DRUG - OTHER] PO SCH (10:00)
[2024-06-21] MEDS ORDERED: Enoxaparin Sodium 40 MG/0.4 ML SYR SC SCH (10:00)
[2024-06-21] MEDS ORDERED: CRANBERRY PO SCH (10:00)
[2024-06-21] MEDS ORDERED: B12 PO SCH (10:00)
[2024-06-21] MEDS ORDERED: DONEPEZIL 10 MG TAB PO SCH (10:00)
[2024-06-21] MEDS ORDERED: [UNRECOGNIZED DRUG - OTHER] PO SCH (10:00)
[2024-06-21] MEDS ORDERED: Memantine Hydrochloride 5 MG TAB PO SCH (10:00)
[2024-06-21] MEDS ORDERED: POTASSIUM CHLORIDE IN WATER 100 ML IV SCH (11:00)
[2024-06-21 12:00] VITALS: BP 104/35
[2024-06-21 16:00] VITALS: BP 131/75
[2024-06-21 17:15] LABS: BUN 9 mg/dl (9-23); CHLORIDE 111 mmol/L (98-107); POTASSIUM 3.1 mmol/L (3.4-5.1)
[2024-06-21] MEDS ORDERED: POTASSIUM CHLORIDE 20 MEQ TAB PO ONE (17:30)
[2024-06-21] MEDS ORDERED: Ceftriaxone Sodium 1 GM,IV 1 EA in SYRINGE INFUSION 10 ML IV SCH (18:00)
[2024-06-21 20:00] VITALS: BP 104/48; BP 132/78
[2024-06-22] VITALS: BP 119/49
[2024-06-22 06:36] LABS: BASO # 0.1 10*3/uL (0.0-0.1); BASO % 0.5 % (0.0-1.0); EOS # 0.4 10*3/uL (0.0-0.4); EOS % 3.4 % (1.0-4.0); HEMATOCRIT 23.8 % (37.0-47.0); MEAN CELL VOLUME 90.8 fl (81.0-99.0); MEAN CORPUSCULAR HGB 28.2 pg (27.0-31.0); MEAN CORPUSCULAR HGB CONC 31.1 g/dl (33.0-37.0); MEAN PLATELET VOLUME 9.9 fl (9.6-12.3); MONO # 0.7 10*3/uL (0.1-1.0); MONO % 6.4 % (3.0-9.0); NEUT # 7.7 10*3/uL (2.3-7.9); NEUT % 70.2 % (47.0-73.0); PLATELET COUNT AUTOMATED 250 10*3/uL (130-400); RED BLOOD COUNT 2.62 10*6/uL (4.10-5.10); RED CELL DISTRI WIDTH 13.8 % (0-14.5)
[2024-06-22 06:49] LABS: BUN 10 mg/dl (9-23); CHLORIDE 111 mmol/L (98-107); POTASSIUM 3.3 mmol/L (3.4-5.1)
[2024-06-22] MEDS ORDERED: POTASSIUM CHLORIDE 20 MEQ TAB PO ONE (07:55)
[2024-06-22 08:00] VITALS: BP 147/69
[2024-06-22 12:00] VITALS: BP 146/66
[2024-06-22 16:00] VITALS: BP 142/60
[2024-06-22 20:00] VITALS: BP 99/57
[2024-06-23] VITALS: BP 105/52
[2024-06-23 07:38] LABS: BUN 10 mg/dl (9-23); CHLORIDE 111 mmol/L (98-107); POTASSIUM 3.6 mmol/L (3.4-5.1)
[2024-06-23 08:00] VITALS: BP 139/75
[2024-06-23] MEDS ORDERED: NAMENDA-5 PO (12:00)
[2024-06-23] MEDS ORDERED: Memantine Hydrochloride 5 MG TAB PO SCH (18:00)
== END 2024-06-23 15:05 | DRG 871 ==
LOC: ED 15:11 → EDHOLD 17:37 → 4E 17:37 → EDHOLD 18:41 → 4E 22:21
PROVIDERS: Emergency Medicine; Internal Medicine; Student in an Organized Health Care Education/Training Program; ADMIT Internal Medicine; ATTEND Internal Medicine
DX: A41.9 Sepsis, unspecified organism (principal); G93.41 Metabolic encephalopathy; N30.00 Acute cystitis without hematuria; E87.20 Acidosis, unspecified; Z66 Do not resuscitate; R65.20 Severe sepsis without septic shock; N18.30 Chronic kidney disease, stage 3 unspecified; G30.9 Alzheimer's disease, unspecified; F02.80 Dementia in other diseases classified elsewhere, unspecified severity, without behavioral disturbance, psychotic disturbance, mood disturbance, and anxiety; R26.2 Difficulty in walking, not elsewhere classified; Z82.49 Family history of ischemic heart disease and other diseases of the circulatory system; R73.9 Hyperglycemia, unspecified; E83.42 Hypomagnesemia; M81.0 Age-related osteoporosis without current pathological fracture; E53.8 Deficiency of other specified B group vitamins; E03.9 Hypothyroidism, unspecified; R13.10 Dysphagia, unspecified; Z79.899 Other long term (current) drug therapy; Z51.5 Encounter for palliative care

== ENCOUNTER 2024-10-17 09:54 | Inpatient (IN) | payer MEDICARE ==
[~2024-10-17] VITALS: Ht 152.4 cm; Wt 58.6 kg
[2024-10-17 09:59] VITALS: BP 114/48
[2024-10-17 10:31] LABS: BASO % 0.3 % (0.0-1.0); EOS # 0.1 10*3/uL (0.0-0.4); EOS % 0.6 % (1.0-4.0); HEMATOCRIT 28.8 % (37.0-47.0); MEAN CELL VOLUME 92.3 fl (81.0-99.0); MEAN CORPUSCULAR HGB 27.6 pg (27.0-31.0); MEAN CORPUSCULAR HGB CONC 29.9 g/dl (33.0-37.0); MEAN PLATELET VOLUME 9.3 fl (9.6-12.3); MONO # 0.8 10*3/uL (0.1-1.0); MONO % 5.8 % (3.0-9.0); NEUT # 11.4 10*3/uL (2.3-7.9); NEUT % 78.6 % (47.0-73.0); PLATELET COUNT AUTOMATED 272 10*3/uL (130-400); RED BLOOD COUNT 3.12 10*6/uL (4.10-5.10); RED CELL DISTRI WIDTH 15.9 % (0-14.5); WHITE BLOOD COUNT 14.5 10*3/uL (4.8-10.8)
[2024-10-17 10:57] LABS: ALKALINE PHOSPHATASE 101 U/L (46-116); BUN 37 mg/dl (9-23); CHLORIDE 119 mmol/L (98-107); POTASSIUM 3.6 mmol/L (3.4-5.1); SGPT/ALT 9 U/L (5-49); TOTAL PROTEIN 7.1 gm/dL (6.0-8.0)
[2024-10-17 11:38] LABS: BILIRUBIN Negative (Negative); BLOOD 3+ (Negative); CLARITY Cloudy (Clear); COLOR Yellow (Yellow); GLUCOSE Negative (Negative); KETONE Negative (Negative); SPECIFIC GRAVITY 1.015 (1.001-1.030)
[2024-10-17 11:39] LABS: LEUKO ESTERASE 3+ (Negative); NITRITE Positive (Negative); UROBILINOGEN 0.2 E.U./dl (0.0-1.0)
[2024-10-17 12:12] LABS: BACTERIA 4+; RBC TNTC rbc/hpf (0-2); WBC TNTC wbc/hpf (0-5)
[2024-10-17] MEDS ORDERED: cefTRIAXone Sodium 1 GM/10 ML SYR IV ONE (12:45)
[2024-10-17] MEDS ORDERED: Lactated Ringer's Solution 1,000 ML IV SCH (12:45)
[2024-10-17 12:55] VITALS: BP 102/56
[2024-10-17] MEDS ORDERED: Acetaminophen/Hydrocodone 5 MG/325 MG TABLET PO PRN (13:20)
[2024-10-17] MEDS ORDERED: ACETAMINOPHEN 325 MG TAB PO PRN (13:20)
[2024-10-17] MEDS ORDERED: Ondansetron Hydrochloride 4 MG/2 ML VIAL IV PRN (13:20)
[2024-10-17 15:00] VITALS: BP 113/50
[2024-10-17] MEDS ORDERED: B12 ACTIVE1000 MCG PO (16:58)
[2024-10-17] MEDS ORDERED: SODIUM CHLORIDE 0.9% 1,000 ML IV ONE (18:05)
[2024-10-17 20:00] VITALS: BP 121/44
[2024-10-17] MEDS ORDERED: Memantine Hydrochloride 5 MG TAB PO SCH (22:00)
[2024-10-17] MEDS ORDERED: HEPARIN SODIUM 5,000 UNIT/ML VIAL SC SCH (22:00)
[2024-10-18] VITALS: BP 123/60; BP 135/44
[2024-10-18] MEDS ORDERED: Levothyroxine Sodium 75 MCG TAB PO SCH (06:00)
[2024-10-18 06:25] LABS: POTASSIUM 3.6 mmol/L (3.4-5.1)
[2024-10-18 06:32] LABS: BASO % 0.2 % (0.0-1.0); EOS # 0.1 10*3/uL (0.0-0.4); EOS % 0.7 % (1.0-4.0); HEMATOCRIT 25.1 % (37.0-47.0); MEAN CELL VOLUME 91.6 fl (81.0-99.0); MEAN CORPUSCULAR HGB CONC 29.5 g/dl (33.0-37.0); MEAN PLATELET VOLUME 9.7 fl (9.6-12.3); MONO # 0.8 10*3/uL (0.1-1.0); MONO % 5.9 % (3.0-9.0); NEUT # 10.2 10*3/uL (2.3-7.9); NEUT % 75.8 % (47.0-73.0); PLATELET COUNT AUTOMATED 235 10*3/uL (130-400); RED BLOOD COUNT 2.74 10*6/uL (4.10-5.10); RED CELL DISTRI WIDTH 16.1 % (0-14.5); WHITE BLOOD COUNT 13.5 10*3/uL (4.8-10.8)
[2024-10-18 08:00] VITALS: BP 90/42
[2024-10-18] MEDS ORDERED: SODIUM CHLORIDE 0.9% 1,000 ML IV ONE (08:15)
[2024-10-18 09:40] VITALS: BP 110/48
[2024-10-18] MEDS ORDERED: DONEPEZIL 10 MG TAB PO SCH (10:00)
[2024-10-18] MEDS ORDERED: risperiDONE 1 MG TAB PO SCH (10:00)
[2024-10-18] MEDS ORDERED: cefTRIAXone Sodium 1 GM,IV 1 EA in SYRINGE INFUSION 10 ML IV SCH (10:00)
[2024-10-18 16:00] VITALS: BP 102/61; BP 134/48; BP 134/98
[2024-10-18] MEDS ORDERED: FOAM BANDAGE 1 EACH BANDAGE T ONE (19:43)
[2024-10-18] MEDS ORDERED: FOAM BANDAGE HEEL T ONE (19:43)
[2024-10-18] MEDS ORDERED: HEEL PROTECTOR DEVICE ONE (19:56)
[2024-10-18 20:00] VITALS: BP 126/55
[2024-10-19] VITALS: BP 123/60
[2024-10-19 05:56] LABS: BUN 26 mg/dl (9-23); CHLORIDE 115 mmol/L (98-107); POTASSIUM 3.2 mmol/L (3.4-5.1)
[2024-10-19 06:05] LABS: BASO % 0.3 % (0.0-1.0); EOS # 0.2 10*3/uL (0.0-0.4); EOS % 1.6 % (1.0-4.0); HEMATOCRIT 23.5 % (37.0-47.0); MEAN CELL VOLUME 89.7 fl (81.0-99.0); MEAN CORPUSCULAR HGB 27.5 pg (27.0-31.0); MEAN CORPUSCULAR HGB CONC 30.6 g/dl (33.0-37.0); MEAN PLATELET VOLUME 9.5 fl (9.6-12.3); MONO # 0.6 10*3/uL (0.1-1.0); MONO % 5.1 % (3.0-9.0); NEUT # 7.5 10*3/uL (2.3-7.9); PLATELET COUNT AUTOMATED 204 10*3/uL (130-400); RED BLOOD COUNT 2.62 10*6/uL (4.10-5.10); WHITE BLOOD COUNT 10.9 10*3/uL (4.8-10.8)
[2024-10-19 08:00] VITALS: BP 115/59
[2024-10-19] MEDS ORDERED: Potassium Bicarbonate/Potass 25 MEQ TAB PO ONE (09:15)
[2024-10-19 12:00] VITALS: BP 118/61
[2024-10-19 16:00] VITALS: BP 129/58
[2024-10-19 20:00] VITALS: BP 121/56
[2024-10-20] VITALS: BP 91/66
[2024-10-20 07:58] LABS: BASO % 0.2 % (0.0-1.0); EOS # 0.2 10*3/uL (0.0-0.4); EOS % 1.6 % (1.0-4.0); HEMATOCRIT 24.5 % (37.0-47.0); MEAN CELL VOLUME 89.1 fl (81.0-99.0); MEAN CORPUSCULAR HGB 26.9 pg (27.0-31.0); MEAN CORPUSCULAR HGB CONC 30.2 g/dl (33.0-37.0); MEAN PLATELET VOLUME 9.2 fl (9.6-12.3); MONO # 0.6 10*3/uL (0.1-1.0); MONO % 5.2 % (3.0-9.0); NEUT # 8.1 10*3/uL (2.3-7.9); NEUT % 70.6 % (47.0-73.0); PLATELET COUNT AUTOMATED 211 10*3/uL (130-400); RED BLOOD COUNT 2.75 10*6/uL (4.10-5.10); RED CELL DISTRI WIDTH 15.7 % (0-14.5); WHITE BLOOD COUNT 11.4 10*3/uL (4.8-10.8)
[2024-10-20 08:00] VITALS: BP 119/60
[2024-10-20 08:17] LABS: POTASSIUM 3.5 mmol/L (3.4-5.1)
[2024-10-20 12:00] VITALS: BP 95/44
[2024-10-20] MEDS ORDERED: CIPRO500 MG PO (12:54)
[2024-10-20 16:00] VITALS: BP 109/49
[2024-10-20 20:00] VITALS: BP 126/55
[2024-10-21] VITALS: BP 130/60
[2024-10-21 08:00] VITALS: BP 120/52
[2024-10-21 11:41] VITALS: BP 127/58
== END 2024-10-21 13:20 | disposition hospice, home (50) | DRG 871 ==
LOC: ED 09:54 → 4E 13:08 → EDHOLD 13:08 → 4E 14:38
PROVIDERS: Emergency Medicine; Internal Medicine; ADMIT Internal Medicine; ATTEND Internal Medicine
DX: A41.9 Sepsis, unspecified organism (principal); N17.0 Acute kidney failure with tubular necrosis; N39.0 Urinary tract infection, site not specified; E87.0 Hyperosmolality and hypernatremia; R65.20 Severe sepsis without septic shock; Z66 Do not resuscitate; G30.9 Alzheimer's disease, unspecified; F02.80 Dementia in other diseases classified elsewhere, unspecified severity, without behavioral disturbance, psychotic disturbance, mood disturbance, and anxiety; E78.5 Hyperlipidemia, unspecified; E03.9 Hypothyroidism, unspecified; N18.30 Chronic kidney disease, stage 3 unspecified; M81.0 Age-related osteoporosis without current pathological fracture; R31.9 Hematuria, unspecified; E87.8 Other disorders of electrolyte and fluid balance, not elsewhere classified; D64.9 Anemia, unspecified; E87.6 Hypokalemia; Z79.899 Other long term (current) drug therapy; Z79.01 Long term (current) use of anticoagulants; Z79.2 Long term (current) use of antibiotics; Z81.1 Family history of alcohol abuse and dependence; Z82.49 Family history of ischemic heart disease and other diseases of the circulatory system; Z82.5 Family history of asthma and other chronic lower respiratory diseases